=== PATIENT | male | born 1975 | race Caucasian/White ===

== ENCOUNTER 2017-11-23 14:11 | Outpatient (CLI) | payer BC | END 2017-11-23 14:12 | disposition home or self-care (01) | LOC: BICRAD 14:11 | PROVIDERS: ATTEND Physician Assistant | DX: R07.81 Pleurodynia (principal) | CPT/HCPCS: 71046 ==

== ENCOUNTER 2018-01-05 13:05 | Outpatient (CLI) | payer BC | END 2018-01-05 13:06 | disposition home or self-care (01) | LOC: BICRAD 13:05 | PROVIDERS: ATTEND Family Medicine | DX: L03.114 Cellulitis of left upper limb (principal) ==

== ENCOUNTER 2018-07-28 16:25 | Outpatient (CLI) | payer BC ==
--- NOTE | 2018-07-28 19:01 | RAD ---
CHEST PA AND LATERAL: History: 42-year-old male with history of cough for four weeks without fever. Comparison: 11-23-17 FINDINGS: Heart size is normal. There appears to be an old granuloma calcification in the inferior right lower lobe. No confluent pneumonia, overt edema, or pleural effusion. IMPRESSION: No acute intrathoracic disease. Old granulomatous disease. No evidence for pneumonia. POS: [facility]
== END 2018-07-28 16:26 | disposition home or self-care (01) ==
LOC: BICRAD 16:25
PROVIDERS: ATTEND Physician Assistant
DX: R05 Cough (principal)
CPT/HCPCS: 71046

== ENCOUNTER 2018-08-14 08:15 | Outpatient (CLI) | payer BC | END 2018-08-14 08:16 | disposition home or self-care (01) | LOC: CTENTCT 08:15 | PROVIDERS: ATTEND Otolaryngology Plastic Surgery within the Head & Neck | DX: J32.9 Chronic sinusitis, unspecified (principal) | CPT/HCPCS: 70486 ==

== ENCOUNTER 2020-06-04 12:08 | Outpatient (CLI) | payer BC, OTHER ==
--- NOTE | 2020-06-04 13:43 | CT ---
EXAM: ABDOMEN AND PELVIC CT SCAN WITHOUT IV CONTRAST: 06/04/20 HISTORY: Left flank pain approximately one week ago becoming more severe. FINDINGS: The lung bases appear unremarkable with minimal linear and parenchymal change in the lingula. There i s a lower attenuation mass in the dome of the right lobe of the liver measuring 5.1 x 6 cm in size. Nonemergent follow-up imaging with CT scan with and without contrast with liver mass/hemangioma prashanth col is suggested for further assessment. The gallbladder and common bile duct, pancreas, spleen, adre nal glands, are unremarkable. There is a 0.9 cm diameter exophytic lower attenuation focus off the an terior superior left kidney statistically a small cyst. There is left sided perirenal fat stranding w ith some hydroureteronephrosis down to near the ureterovesicular junction region where there appears to be an obstructing 0.2 x 0.[address] evidence for acute appendicitis. IMPRESSION: Obstructing distal left ureteral calculus with proximal hydroureteronephrosis and minimal perirenal f at stranding. 5.1 x 6 cm diameter mass in the upper right lobe of the liver. Further assessment as above. POS: [facility]
== END 2020-06-04 12:09 | disposition home or self-care (01) ==
LOC: SCSCT 12:08
PROVIDERS: ATTEND Family Medicine
DX: R10.9 Unspecified abdominal pain (principal); N40.1 Benign prostatic hyperplasia with lower urinary tract symptoms; N13.30 Unspecified hydronephrosis; R16.0 Hepatomegaly, not elsewhere classified
CPT/HCPCS: 74176

== ENCOUNTER 2020-06-11 12:27 | Outpatient (CLI) | payer OTHER ==
--- NOTE | 2020-06-11 14:20 | CT ---
CT ABDOMEN WITH AND WITHOUT IV CONTRAST: 06/11/20 HISTORY: Liver mass seen on CT stone protocol of 06/04/20. FINDINGS: There is a 6 cm mass in the dome of the right lobe of the liver which redemonstrates peripheral nodul ar enhancement and centripetal filling on delayed images following IV contrast administration. There are tiny calcified granulomas in the spleen. The pancreas, adrenal glands, and kidneys are norm al. No calculi is seen in the kidneys on either side. No free air, free fluid, or lymphadenopathy is noted in the abdomen. The aorta is of normal caliber. A small fat containing umbilical hernia is noted. There are mild degenerative changes in the lower ludivina mbar spine. IMPRESSION: Liver hemangioma. POS: [facility]
== END 2020-06-11 12:28 | disposition home or self-care (01) ==
LOC: SCSCT 12:27
PROVIDERS: ATTEND Family Medicine
DX: R10.9 Unspecified abdominal pain (principal); D18.03 Hemangioma of intra-abdominal structures
CPT/HCPCS: 74170

== ENCOUNTER 2021-05-18 07:14 | Outpatient (CLI) | payer BC | END 2021-05-18 07:15 | disposition home or self-care (01) | LOC: BICMRI 07:14 → SCSMRI 07:15 | PROVIDERS: ATTEND Family Medicine | DX: M47.22 Other spondylosis with radiculopathy, cervical region (principal) | CPT/HCPCS: 72141 ==

== ENCOUNTER 2022-06-22 07:36 | Outpatient (CLI) | payer BC ==
[2022-06-22] MEDS ORDERED: Iopamidol 370 76% 100 ML VIAL ONE (08:34)
== END 2022-06-22 07:37 | disposition home or self-care (01) ==
LOC: CT 07:36
PROVIDERS: ATTEND Otolaryngology Plastic Surgery within the Head & Neck
DX: D35.1 Benign neoplasm of parathyroid gland (principal); R59.0 Localized enlarged lymph nodes
CPT/HCPCS: 70492; Q9967

== ENCOUNTER 2022-07-19 12:58 | Outpatient (CLI) | payer BC | END 2022-07-19 12:59 | disposition home or self-care (01) | LOC: NM 12:58 | PROVIDERS: ATTEND Otolaryngology Plastic Surgery within the Head & Neck | DX: D35.1 Benign neoplasm of parathyroid gland (principal) | CPT/HCPCS: 78072; A9500 ==

== ENCOUNTER 2022-08-02 07:48 | Outpatient (CLI) | payer BC | END 2022-08-02 07:49 | disposition home or self-care (01) | LOC: LABBT 07:48 | PROVIDERS: ATTEND Otolaryngology Plastic Surgery within the Head & Neck | DX: Z01.810 Encounter for preprocedural cardiovascular examination (principal); D35.1 Benign neoplasm of parathyroid gland; E34.9 Endocrine disorder, unspecified; E83.52 Hypercalcemia; K21.9 Gastro-esophageal reflux disease without esophagitis; R68.89 Other general symptoms and signs; R05.9 Cough, unspecified | CPT/HCPCS: 93005; 93010 ==

== ENCOUNTER 2024-08-06 13:48 | Outpatient (CLI) | payer OTHER ==
[2024-08-06] MEDS ORDERED: Iopamidol 370 76% 100 ML VIAL ONE (14:21)
== END 2024-08-06 13:49 | disposition home or self-care (01) ==
LOC: CT 13:48
PROVIDERS: ATTEND Otolaryngology Plastic Surgery within the Head & Neck
DX: E21.3 Hyperparathyroidism, unspecified (principal); E04.2 Nontoxic multinodular goiter
CPT/HCPCS: 70492

== ENCOUNTER 2024-09-11 01:37 | Emergency (ER) | payer OTHER ==
[2024-09-11 02:23] LABS: #Basophils 0.04 10x3/uL (0.0-0.2); #Eosinophils Less than 0.03 10x3/uL (0.0-0.7); %Basophils 0.4 % (0.0-1.0); %Eosinophils 0.1 % (0.0-10.0); %Lymphocytes 23.7 % (21.0-51.0); %Monocytes 6.7 % (0.0-10.0); %Neutrophils 68.9 % (42.0-75.0); Hematocrit 44.6 % (42.0-52.0); Hemoglobin 14.9 g/dL (14.0-18.0); Mean Corpuscular HGB CONC 33.4 g/dL (32.0-36.0); Mean Corpuscular Hemoglobin 26.9 pg (27.0-31.0); Mean Corpuscular Volume 80.7 fL (78.0-98.0); Mean Platelet Volume 9.4 fL (7.4-10.4); Platelet Count 233 10x3/uL (130-400); RBC Distribution Width 13.7 % (11.5-14.5); Red Blood Cell (RBC) Count 5.53 mill/uL (4.70-6.10)
[2024-09-11 02:40] LABS: ALT (SGPT) 22 U/L (8-55); AST (SGOT) 24 U/L (5-34); Alkaline Phosphatase 69 U/L (40-110); Anion Gap 12 mmol/L (10-20); BUN (Urea Nitrogen) 16 mg/dL (8.9-20.6); Bilirubin, Total 0.4 mg/dL (0.2-1.2); Calc. Creatinine Clearance 0 mL/min (70-130); Calcium 8.8 mg/dL (7.8-10.44); Carbon Dioxide 24 mmol/L (22-29); Chloride 105 mmol/L (98-107); Estimated GFR 107; Globulin 3.2 g/dL (2.4-3.5); Glucose 126 mg/dL (70-105); Potassium 3.6 mmol/L (3.5-5.1); Protein, Total 7.2 g/dL (6.0-8.3); Sodium 137 mmol/L (136-145)
[2024-09-11 02:45] LABS: Troponin I Less than 0.010 ng/mL (< 0.028)
[2024-09-11 04:16] LABS: Phosphorus 2.8 mg/dL (2.3-4.7)
[2024-09-11 05:22] LABS: Troponin I Less than 0.010 ng/mL (< 0.028)
== END 2024-09-11 05:42 | disposition home or self-care (01) ==
LOC: ERS 01:37
DX: M79.602 Pain in left arm (principal); R20.2 Paresthesia of skin; I10 Essential (primary) hypertension
CPT/HCPCS: 36415; 71045; 80053; 83880; 84100; 84484; 85025; 93005